=== PATIENT | male | born 1960 | race Caucasian/White ===

== ENCOUNTER → 2021-04-17 | Outpatient (CLI) | payer OTHER | LOC: SJCVCIMAG 12:51 | PROVIDERS: ATTEND Internal Medicine | DX: I45.10 Unspecified right bundle-branch block (principal); I49.3 Ventricular premature depolarization; R06.00 Dyspnea, unspecified; R53.83 Other fatigue; R94.31 Abnormal electrocardiogram [ECG] [EKG]; Z79.899 Other long term (current) drug therapy ==